=== PATIENT | male | born 1995 | race Caucasian/White ===

== ENCOUNTER 2018-05-10 08:15 | Emergency (ER) | payer OTHER ==
[~2018-05-10] VITALS: Ht 182.9 cm; Wt 104.3 kg
[2018-05-10] MEDS ORDERED: NS IV 1000 ML 1,000 ML IV ONE (09:31)
[2018-05-10 09:44] LABS: CLARITY,URINE CLEAR; COLOR,URINE AMBER; GLUCOSE, URINE (UA) NEGATIVE (NEGATIVE); KETONES,URINE 2+ (NEGATIVE); LEUKOCYTE ESTERASE ,URINE 2+ (NEGATIVE); NITRITE,URINE NEGATIVE (NEGATIVE); PH,URINE 5 (5-9); PROTEIN,URINE 2+ (NEGATIVE); UROBILINOGEN,URINE 1 MG/DL (NORMAL)
[2018-05-10 09:53] LABS: BASOPHILS % (AUTO) 0 % (0-10); EOSINOPHILS # (AUTO) 0.1 10^3/uL (0.0-0.3); EOSINOPHILS % (AUTO) 1 % (0-10); HEMATOCRIT 49 % (40-54); HEMOGLOBIN 16.8 G/DL (13.3-17.7); LYMPHOCYTES # (AUTO) 1.8 X 10^3 (1.0-4.0); LYMPHOCYTES % (AUTO) 17 % (12-44); MEAN CORPUSCULAR HEMOGLOBIN 29 PG (25-34); MEAN CORPUSCULAR HGB CONC 35 G/DL (32-36); MEAN CORPUSCULAR VOLUME 83 FL (80-99); MEAN PLATELET VOLUME 9.9 FL (7.4-10.4); MONOCYTES # (AUTO) 0.7 X 10^3 (0.0-1.0); MONOCYTES % (AUTO) 7 % (0-12); NEUTROPHILS % (AUTO) 74 % (42-75); PLATELET COUNT 194 10^3/uL (130-400); RED BLOOD COUNT 5.87 10^6/uL (4.35-5.85); WHITE BLOOD COUNT 10.7 10^3/uL (4.3-11.0)
[2018-05-10 10:15] LABS: ALANINE AMINOTRANSFERASE 49 U/L (0-55); ALBUMIN 4.7 GM/DL (3.2-4.5); ALKALINE PHOSPHATASE 69 U/L (40-136); BILIRUBIN,TOTAL 0.9 MG/DL (0.1-1.0); BUN/CREATININE RATIO 12; CALCIUM 10.1 MG/DL (8.5-10.1); CARBON DIOXIDE 26 MMOL/L (21-32); CHLORIDE 105 MMOL/L (98-107); CREATININE SERUM 0.92 MG/DL (0.60-1.30); GFR ESTIMATED > 60; GLUCOSE 90 MG/DL (70-105); POTASSIUM 3.4 MMOL/L (3.6-5.0); SODIUM 141 MMOL/L (135-145); TOTAL PROTEIN 7.7 GM/DL (6.4-8.2)
[2018-05-10 10:26] LABS: BACTERIA,URINE NEGATIVE /HPF; BILIRUBIN,URINE 1+ (NEGATIVE); RBC,URINE TNTC /HPF; WBC,URINE 0-2 /HPF
--- NOTE | 2018-05-10 11:29 | Diagnostic Imaging Report ---
PROCEDURE: CT urinary tract, rule out kidney stone. TECHNIQUE: Multiple contiguous axial images were obtained through the abdomen and pelvis without the use of intravenous contrast. INDICATION: Right lower quadrant abdominal pain. Unenhanced images of the liver and spleen reveal no focal abnormality. Gallbladder, pancreas and adrenal glands are also unremarkable in appearance. There are multiple nonobstructing calculi within the left kidney. Largest is in the left upper pole reaching 0.6 cm in size. There is also a tiny nonobstructing stone in the lower pole of the right kidney. There is mild right renal pelvic and ureteric prominence to the level of the ureterovesical junction where there is an approximately 0.3 cm calcification which appears to protrude into the bladder lumen. There is no evidence of localized inflammation. In particular, the appendix has a normal appearance. There are prominent mesenteric lymph nodes with the largest in the right lower quadrant reaching 2 cm long axis. Bladder is otherwise unremarkable. There is no evidence of organized fluid collection. IMPRESSION: Multiple bilateral renal calculi with an approximately 0.3 cm calculus at the right ureterovesical junction which may result in mild obstruction. This may be in the process of passing into the bladder lumen. Otherwise, no acute abnormality identified, however, prominent mesenteric lymph nodes may represent mesenteric adenitis. Dictated by: Dictated on workstation # [id number]
--- NOTE | 2018-05-10 11:37 | ED Abdominal Pain ---
General Chief Complaint: Abdominal/GI Problems Stated Complaint: BACK AND ABD PAIN Nursing Triage Note: PT STATES ABD AND RT FLANK PAIN THAT STARTED ABOUT 0630 THIS A.M. Sepsis Screen: No Definite Risk Source of Information: Patient Exam Limitations: No Limitations History of Present Illness Date Seen by Provider: May 10, 2018 Time Seen by Provider: 09:31 Initial Comments This 22-year-old young man presents to the emergency room with complaints of pain in the right flank radiating down to the right lower abdomen. Pain started around 06:30. It was initially very intense but diseased up some now. He denies any urinary change. His urine does look tea-colored when collected for urinalysis. Allergies and Home Medications Allergies Coded Allergies: No Known Drug Allergies (Unverified , 05/10/18) Home Medications No Active Prescriptions or Reported Meds Patient Home Medication List Home Medication List Reviewed: Yes Review of Systems Review of Systems Constitutional: no symptoms reported EENTM: No Symptoms Reported Respiratory: No Symptoms Reported Cardiovascular: No Symptoms Reported Gastrointestinal: See HPI Genitourinary: See HPI Musculoskeletal: no symptoms reported Skin: no symptoms reported Psychiatric/Neurological: No Symptoms Reported Endocrine: No Symptoms Reported Hematologic/Lymphatic: No Symptoms Reported Past Lewtefo-Shfrwf-Oipucv Hx Past Med/Social Hx: Reviewed Nursing Past Med/Soc Hx Patient Social History Alcohol Use: Occasionally Uses Alcohol Beverage of Choice: Beer Recreational Drug Use: No Smoking Status: Current Everyday Smoker Type Used: Cigarettes Recent Foreign Travel: No Contact w/Someone Who Travel: No Recent Infectious Disease Expo: No Recent Hopitalizations: No Seasonal Allergies Seasonal Allergies: No Past Medical History Surgeries: Yes Adenoidectomy, Tonsillectomy Respiratory: No Cardiac: No Neurological: No Genitourinary: No Gastrointestinal: No Musculoskeletal: No Endocrine: No HEENT: No Cancer: No Psychosocial: No Integumentary: No Physical Exam Vital Signs Vital Signs - First Documented 05/10/18 09:00 Temp 98.1 Pulse 73 Resp 18 B/P (MAP) 137/90 (106) Pulse Ox 98 O2 Delivery Room Air Capillary Refill : Less Than 3 Seconds Height/Weight/BMI Height: 6'" Weight: 230lbs. oz. 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, no motor/sensory deficits, alert, normal mood/affect, oriented x 3 Skin: normal color, warm/dry Progress/Results/Core Measures Results/Orders Lab Results Laboratory Tests Test 05/10/18 09:15 05/10/18 09:45 Range/Units Urine Color JIMMY H Urine Clarity CLEAR Urine pH 5 5-9 Urine Specific [place] 1.025 H 1.016-1.022 Urine Protein 2+ H NEGATIVE Urine Glucose (UA) NEGATIVE NEGATIVE Urine Ketones 2+ H NEGATIVE Urine Nitrite NEGATIVE NEGATIVE Urine Bilirubin 1+ H NEGATIVE Urine Urobilinogen 1 NORMAL MG/DL Urine Leukocyte Esterase 2+ H NEGATIVE Urine RBC (Auto) 5+ H NEGATIVE Urine RBC TNTC H /HPF Urine WBC 0-2 /HPF Urine Squamous Epithelial Cells NONE /HPF Urine Crystals NONE /LPF Urine Bacteria NEGATIVE /HPF Urine Casts NONE /LPF Urine Mucus SMALL H /LPF Urine Culture Indicated NO White Blood Count 10.7 4.3-11.0 10^3/uL Red Blood Count 5.87 H 4.35-5.85 10^6/uL Hemoglobin 16.8 13.3-17.7 G/DL Hematocrit 49 40-54 % Mean Corpuscular Volume 83 80-99 FL Mean Corpuscular Hemoglobin 29 25-34 PG Mean Corpuscular Hemoglobin Concent 35 32-36 G/DL Red Cell Distribution Width 13.0 10.0-14.5 % Platelet Count 194 130-400 10^3/uL Mean Platelet Volume 9.9 7.4-10.4 FL Neutrophils (%) (Auto) 74 42-75 % Lymphocytes (%) (Auto) 17 12-44 % Monocytes (%) (Auto) 7 0-12 % Eosinophils (%) (Auto) 1 0-10 % Basophils (%) (Auto) 0 0-10 % Neutrophils # (Auto) 8.0 H 1.8-7.8 X 10^3 Lymphocytes # (Auto) 1.8 1.0-4.0 X 10^3 Monocytes # (Auto) 0.7 0.0-1.0 X 10^3 Eosinophils # (Auto) 0.1 0.0-0.3 10^3/uL Basophils # (Auto) 0.0 0.0-0.1 10^3/uL Sodium Level 141 135-145 MMOL/L Potassium Level 3.4 L 3.6-5.0 MMOL/L Chloride Level 105 98-107 MMOL/L Carbon Dioxide Level 26 21-32 MMOL/L Anion Gap 10 5-14 MMOL/L Blood Urea Nitrogen 11 7-18 MG/DL Creatinine 0.92 0.60-1.30 MG/DL Estimat Glomerular Filtration Rate > 60 BUN/Creatinine Ratio 12 Glucose Level 90 70-105 MG/DL Calcium Level 10.1 8.5-10.1 MG/DL Corrected Calcium 8.5-10.1 MG/DL Total Bilirubin 0.9 0.1-1.0 MG/DL Aspartate Amino Transf (AST/SGOT) 24 5-34 U/L Alanine Aminotransferase (ALT/SGPT) 49 0-55 U/L Alkaline Phosphatase 69 40-136 U/L Total Protein 7.7 6.4-8.2 GM/DL Albumin 4.7 H 3.2-4.5 GM/DL My Orders Orders - BYRON ALVA MD Cbc With Automated Diff (05/10/18 09:31) Comprehensive Metabolic Panel (05/10/18 09:31) Ua Culture If Indicated (05/10/18 09:31) Saline Lock/Iv-Start (05/10/18 09:31) Ns Iv 1000 Ml (Sodium Chloride 0.9%) (05/10/18 09:31) Ct Abd/Pelvis Wo(Kidney Stone) (05/10/18 10:34) Abdomen/Kub 1view (05/10/18 11:18) Ketorolac Injection (Toradol Injection) (05/10/18 11:45) Medications Given in ED Vital Signs/I&O 05/10/18 05/10/18 05/10/18 09:00 11:44 12:09 Temp 98.1 98.1 98.1 Pulse 73 74 Resp 18 18 B/P (MAP) 137/90 (106) 129/78 (95) Pulse Ox 98 98 O2 Delivery Room Air Room Air Blood Pressure Mean: 106 Progress Progress Note : Progress Note Patient was treated with IV fluids and Toradol. Right distal ureteral stone was identified by CT scan. Follow-up instructions reviewed and a strainer was provided. Patient was dismissed in improved condition. Diagnostic Imaging Diagonstic Imaging: CT Plain Films/CT/US/NM/MRI: abdomen, pelvis Comments CT abdomen and pelvis viewed by me and report reviewed. See report below: NAME: TEJINDER PEREIRA MED REC#: [id number] PT STATUS: REG ER : 1995 PHYSICIAN: BYRON ALVA MD ADMIT DATE: 05/10/18/ER Draft Date of Exam:05/10/18 CT ABD/PELVIS WO(KIDNEY STONE) PROCEDURE: CT urinary tract, rule out kidney stone. TECHNIQUE: Multiple contiguous axial images were obtained through the abdomen and pelvis without the use of intravenous contrast. INDICATION: Right lower quadrant abdominal pain. Unenhanced images of the liver and spleen reveal no focal abnormality. Gallbladder, pancreas and adrenal glands are also unremarkable in appearance. There are multiple nonobstructing calculi within the left kidney. Largest is in the left upper pole reaching 0.6 cm in size. There is also a tiny nonobstructing stone in the lower pole of the right kidney. There is mild right renal pelvic and ureteric prominence to the level of the ureterovesical junction where there is an approximately 0.3 cm calcification which appears to protrude into the bladder lumen. There is no evidence of localized inflammation. In particular, the appendix has a normal appearance. There are prominent mesenteric lymph nodes with the largest in the right lower quadrant reaching 2 cm long axis. Bladder is otherwise unremarkable. There is no evidence of organized fluid collection. IMPRESSION: Multiple bilateral renal calculi with an approximately 0.3 cm calculus at the right ureterovesical junction which may result in mild obstruction. This may be in the process of passing into the bladder lumen. Otherwise, no acute abnormality identified, however, prominent mesenteric lymph nodes may represent mesenteric adenitis. Dictated on workstation # [id number] Dict: 05/10/18 1116 Trans: 05/10/18 1128 [facility] [id number] Interpreted by: MARTHA GALO MD Diagonstic Imaging: Xray Plain Films/CT/US/NM/MRI: abdomen Comments NAME: TEJINDER PEREIRA MED REC#: [id number] PT STATUS: REG ER : 1995 PHYSICIAN: BYRON ALVA MD ADMIT DATE: 05/10/18/ER Signed Date of Exam: 05/10/18 ABDOMEN/KUB 1VIEW INDICATION: Right flank pain. TIME OF EXAM: 11:48 AM FINDINGS: Single view of the abdomen does show multiple punctate calcifications overlying the upper, mid and lower poles of the left kidney consistent with renal calculi. There may be a tiny calculus overlying the lower pole of the right kidney as well which is moderately obscured by bowel contents. No definite calculi along the course of the ureters is seen. Bowel gas pattern is nonobstructed. IMPRESSION: Findings suggestive of bilateral renal calculi. No definite ureteral calculi are identified. Dictated by: Dictated on workstation # [id number] Dict: 05/10/18 1133 Trans: 05/10/18 1536 Interpreted by: CARLA GOMES MD Electronically signed by: CARLA GOMES MD 05/10/18 1536 Departure Impression Primary Impression: Right ureteral stone Additional Impression: Nephrolithiasis Disposition: 01 HOME, SELF-CARE Condition: Improved Departure-Patient Inst. Referrals: MARLON MULTANI MD Patient Instructions: Kidney Stones in Adults Add. Discharge Instructions: Drink plenty of clear liquids. Take ibuprofen up to 600 mg every 6 hours as needed for pain. Add Tylenol ( acetaminophen) up to 1000 mg every 6 hours as needed for additional pain relief. Strain your urine and bring any stones collected to your follow-up appointment. Follow-up with your primary care provider or Dr. Multani within the next week. Return to care if you have worsening symptoms. All discharge instructions reviewed with patient and/or family. Voiced understanding. Scripts No Active Prescriptions or Reported Meds BYRON ALVA MD May 10, 2018 11:37
[2018-05-10] MEDS ORDERED: KETOROLAC 30 MG/ML VIAL IVP ONE (11:45)
[2018-05-10 12:09] VITALS: BP 129/78
== END 2018-05-10 12:09 | disposition home or self-care (01) ==
LOC: ER 08:16
DX: N20.2 Calculus of kidney with calculus of ureter (principal); F17.210 Nicotine dependence, cigarettes, uncomplicated; Z90.89 Acquired absence of other organs
CPT/HCPCS: 36415; 74018; 74176; 80053; 81000; 85025; 96361; 96374